=== PATIENT | male | born 1970 | race African-American/Black ===

== ENCOUNTER 2016-09-11 23:04 | Emergency (ER) | payer SELFPAY ==
[~2016-09-11] VITALS: Ht 188 cm; Wt 86.0 kg
[~2016-09-11 23:04] MED LIST: ADDE30XR PO; BACT800T5 PO; IBUP400T20 PO; LEVA500T PO; LISI-360 PO; PERC5TAB12 PO; RANI150 PO; REME30TA PO; XANA1TAB6 PO
[2016-09-11 23:07] VITALS: BP 117/64; PULSE 113; TEMP 99.5
[2016-09-11] MEDS ORDERED: GABA300C5 PO (23:25)
[2016-09-11] MEDS ORDERED: LISI10TA3 PO (23:25)
[2016-09-11] MEDS ORDERED: XANA2TAB2 PO (23:25)
[2016-09-11] MEDS ORDERED: REME30TA PO (23:25)
--- NOTE | 2016-09-11 23:46 | PD ---
HPI Chief Complaint: Chest Pain Time Seen by Provider: 23:22 Travel History International Travel<30 days: No Contact w/Intl Traveler<30days: No Traveled to known affect area: No History of Present Illness HPI 46-year-old male complains of chest pain. Patient states that the pain started this evening when he was at a local store. Patient states that the pain is sharp pain started in the left chest with radiation to left arm. Patient states the pain is worse with deep inspiration. Patient states that he has shortness of breath with the pain. Patient denies any coughing congestion fever chills. Patient denies any injury to the chest wall. Patient denies any history of CAD. Patient states that he had chest pain in the past and had a normal stress test a year ago. Patient states that he had history IV drug abuse in the past but not recently. EMS was called. Patient was given nitroglycerin sublingually 3 and aspirin 162 mg by mouth. Patient states that he has persistent pain despite the medication. On a scale of 1-10 the pain is an 8. Patient has history of anxiety depression, hepatitis C, hypertension. Patient denies history of diabetes or dyslipidemia. Patient is a smoker. Patient denies any alcohol or illicit drug abuse recently. PFSH Past Medical History Arthritis: No Bipolar Disorder: Yes Anxiety: Yes (panic attacks) Depression: Yes Heart Rhythm Problems: No Cardiac Catheterization: No Cardiovascular Problems: Yes High Cholesterol: Yes Chest Pain: No Congestive Heart Failure: No Cerebrovascular Accident: No Diabetes: Yes Diminished Hearing: No Deep Vein Thrombosis: Yes (LEFT ARM) Endocrine: No Genitourinary: No Headaches: Yes Hepatitis: Yes (C) Hypertension: Yes Immune Disorder: No Musculoskeletal: Yes Neurologic: Yes Psychiatric: Yes Reproductive: No Respiratory: No Migraines: Yes Seizures: No Tetanus Vaccination: < 5 Years Past Surgical History Coronary Artery Bypass Graft: No Tonsillectomy: Yes Other Surgery: No Social History Alcohol Use: No (DENIES) Tobacco Use: Yes (1/2 PPD) Substance Use: No Allergies-Medications (Allergen,Severity, Reaction): Coded Allergies: No Known Allergies (Verified , 08/02/15) Reported Meds & Prescriptions Reported Meds & Active Scripts Active Reported Remeron (Mirtazapine) 30 Mg Tab 30 Mg PO HS Gabapentin 300 Mg Cap 300 Mg PO TID Lisinopril 10 Mg Tab 10 Mg PO BID Xanax (Alprazolam) 2 Mg Tab 2 Mg PO QID PRN Review of Systems General / Constitutional: No: Fever Eyes: No: Visual changes HENT: No: Headaches Cardiovascular: Positive: Chest Pain or Discomfort Respiratory: Positive: Shortness of Breath Gastrointestinal: No: Abdominal Pain Genitourinary: No: Dysuria Musculoskeletal: No: Pain Skin: No Rash Neurologic: No: Weakness Psychiatric: No: Depression Endocrine: No: Polydipsia Hematologic/Lymphatic: No: Easy Bruising Physical Exam Narrative GENERAL: Well-nourished, well-developed patient. SKIN: Warm and dry. HEAD: Normocephalic. EYES: No scleral icterus. No injection or drainage. NECK: Supple, trachea midline. No JVD or lymphadenopathy. CARDIOVASCULAR: Regular rate and rhythm without murmurs, gallops, or rubs. RESPIRATORY: Breath sounds equal bilaterally. No accessory muscle use. GASTROINTESTINAL: Abdomen soft, non-tender, nondistended. MUSCULOSKELETAL: No cyanosis, or edema. BACK: Nontender without obvious deformity. No CVA tenderness. Neurologic exam normal. Data Data Last Documented VS Vital Signs Date Time Temp Pulse Resp B/P Pulse Ox O2 Delivery O2 Flow Rate FiO2 09/12/16 00:08 98 18 123/74 99 Room Air 09/11/16 23:07 99.5 Orders Complete Blood Count With Diff (09/11/16 23:39) Comprehensive Metabolic Panel (09/11/16 23:39) Creatine Kinase (Cpk) (09/11/16 23:39) Troponin I (09/11/16 23:39) Prothrombin Time / Inr (Pt) (09/11/16 23:39) Act Partial Throm Time (Ptt) (09/11/16 23:39) Chest, Single Ap (09/11/16 23:39) Iv Access Insert/Monitor (09/11/16 23:39) Ecg Monitoring (09/11/16 23:39) Oximetry (09/11/16 23:39) Labs Laboratory Tests Test 09/11/16 23:55 White Blood Count 15.6 TH/MM3 Red Blood Count 4.80 MIL/MM3 Hemoglobin 14.2 GM/DL Hematocrit 42.0 % Mean Corpuscular Volume 87.5 FL Mean Corpuscular Hemoglobin 29.5 PG Mean Corpuscular Hemoglobin 33.7 % Concent Red Cell Distribution Width 12.6 % Platelet Count 382 TH/MM3 Mean Platelet Volume 7.2 FL Neutrophils (%) (Auto) 73.0 % Lymphocytes (%) (Auto) 20.1 % Monocytes (%) (Auto) 5.7 % Eosinophils (%) (Auto) 0.8 % Basophils (%) (Auto) 0.4 % Neutrophils # (Auto) 11.4 TH/MM3 Lymphocytes # (Auto) 3.1 TH/MM3 Monocytes # (Auto) 0.9 TH/MM3 Eosinophils # (Auto) 0.1 TH/MM3 Basophils # (Auto) 0.1 TH/MM3 CBC Comment DIFF FINAL Differential Comment Prothrombin Time 11.4 SEC Prothromb Time International 1.0 RATIO Ratio Activated Partial 29.4 SEC Thromboplast Time Sodium Level 140 MEQ/L Potassium Level 3.7 MEQ/L Chloride Level 105 MEQ/L Carbon Dioxide Level 25.3 MEQ/L Anion Gap 10 MEQ/L Blood Urea Nitrogen 6 MG/DL Creatinine 0.86 MG/DL Estimat Glomerular Filtration 117 ML/MIN Rate Random Glucose 99 MG/DL Calcium Level 8.5 MG/DL Total Bilirubin 0.3 MG/DL Aspartate Amino Transf 7 U/L (AST/SGOT) Alanine Aminotransferase 17 U/L (ALT/SGPT) Alkaline Phosphatase 65 U/L Total Creatine Kinase 63 U/L Troponin I LESS THAN 0.02 NG/ML Total Protein 8.3 GM/DL Albumin 3.7 GM/DL [facility] Medical Decision Making Medical Screen Exam Complete: Yes Emergency Medical Condition: Yes Interpretation(s) 23:46 PM. EKG shows sinus rhythm nonspecific ST-T wave change. 1:02 AM. Chest x-ray shows no acute consolidation. CBC WBC 15.6. 73 neutrophil. CMP within normal limit. Cardiac enzymes are normal. Differential Diagnosis Differential diagnosis including musculoskeletal, pleurisy, angina, MN, PE, pneumothorax. Narrative Course 46-year-old male with chest pain. The chest pains worse with deep inspiration. Diagnosis Primary Impression: Chest pain, atypical Additional Instructions: Tylenol or Advil for pain. Follow-up with personal physician and ux interaction designer. Return if increase of chest pain or shortness of breath. Med/Other Pt SpecificInfo: No Change to Meds Disposition: 01 DISCHARGE HOME Condition: Stable Oskar Regan MD Sep 11, 2016 23:46
--- NOTE | 2016-09-12 00:04 | RADRPT ---
EXAM DATE/TIME: 09/11/2016 23:49 [facility] COMPARISON: No previous studies available for comparison. INDICATIONS : Pt having chest pain for couple hours. MEDICAL HISTORY : Hypertension. Hepatitis C. SURGICAL HISTORY : Tonsillectomy. ENCOUNTER: Initial ACUITY: 1 day PAIN SCORE: 7/10 LOCATION: Bilateral chest FINDINGS: A single view of the chest demonstrates the lungs to be symmetrically aerated without evidence of mas s, infiltrate or effusion. The cardiomediastinal contours are unremarkable. Osseous structures are intact. CONCLUSION: No evidence of acute cardiopulmonary disease. Horacio Terrazas MD on September 12, 2016 at 0:02 Board Certified Radiologist. This report was verified electronically.
[2016-09-12 00:06] LABS: AUTOMATED NEUTROPHIL # 11.4 TH/MM3 (1.8-7.7); BASOPHIL # 0.1 TH/MM3 (0-0.2); BASOPHIL % 0.4 % (0.0-2.0); EOSINOPHIL # 0.1 TH/MM3 (0-0.4); EOSINOPHIL % 0.8 % (0.0-4.0); HEMO FLAGS DIFF FINAL; LYMPH % 20.1 % (9.0-44.0); LYMPHOCYTE # 3.1 TH/MM3 (1.0-4.8); MEAN CELL VOLUME 87.5 FL (80.0-100.0); MEAN CORPUSCULAR HEMOGLOBIN 29.5 PG (27.0-34.0); MEAN CORPUSCULAR HGB CONC 33.7 % (32.0-36.0); MONO % 5.7 % (0.0-8.0); PLATELET COUNT 382 TH/MM3 (150-450); RED CELL DISTRIBUTION WIDTH 12.6 % (11.6-17.2); WHITE BLOOD COUNT 15.6 TH/MM3 (4.0-11.0)
[2016-09-12 00:08] VITALS: BP 123/74; PULSE 98; RESP 18; O2SAT 99
[2016-09-12 00:14] LABS: APTT (PATIENT) 29.4 SEC (24.3-30.1); PROTHROMBIN TIME - PATIENT 11.4 SEC (9.8-11.6)
[2016-09-12 00:27] LABS: ALT (GPT) 17 U/L (12-78); ANION GAP 10 MEQ/L (5-15); AST (GOT) 7 U/L (15-37); BICARBONATE 25.3 MEQ/L (21.0-32.0); BLOOD UREA NITROGEN 6 MG/DL (7-18); CHLORIDE 105 MEQ/L (98-107); GLOMERULAR FILTRATION RATE 117 ML/MIN (>89); POTASSIUM 3.7 MEQ/L (3.5-5.1); SODIUM (NA) 140 MEQ/L (136-145)
[2016-09-12 00:52] LABS: ALKALINE PHOSPHATASE 65 U/L (45-117); CREATINE KINASE 63 U/L (39-308); TOTAL BILIRUBIN ADULT 0.3 MG/DL (0.2-1.0)
--- NOTE | 2016-09-12 08:32 | EKG ---
Date Performed: 09/11/2016 Time Performed: 23:21:36 PTAGE: 46 years EKG: Sinus rhythm LEFT ATRIAL ENLARGEMENT ABNORMAL ECG PREVIOUS TRACING : 08/02/2015 14.56 Compared to previous tracing, left atrial abnormality now p resent. DOCTOR: Tan Wells Interpretating Date/Time 09/12/2016 08:30:01
== END 2016-09-12 02:52 | disposition home or self-care (01) ==
LOC: NEPC 23:04
DX: R07.89 Other chest pain (principal); R06.02 Shortness of breath; R94.31 Abnormal electrocardiogram [ECG] [EKG]; I10 Essential (primary) hypertension; E78.00 Pure hypercholesterolemia, unspecified; F17.200 Nicotine dependence, unspecified, uncomplicated; Z86.59 Personal history of other mental and behavioral disorders; Z86.19 Personal history of other infectious and parasitic diseases; Z86.79 Personal history of other diseases of the circulatory system; Z86.718 Personal history of other venous thrombosis and embolism; Z87.39 Personal history of other diseases of the musculoskeletal system and connective tissue; Z86.69 Personal history of other diseases of the nervous system and sense organs
CPT/HCPCS: 71010; 80053; 82550; 84484; 85025; 85610; 85730; 93005; 99285

== ENCOUNTER 2016-09-18 10:59 | Emergency (ER) | payer OTHER ==
[~2016-09-18] VITALS: Ht 188 cm; Wt 78.0 kg
[~2016-09-18 10:59] MED LIST changes: -ADDE30XR PO; -BACT800T5 PO; +GABA300C5 PO; -IBUP400T20 PO; -LEVA500T PO; -LISI-360 PO; +LISI10TA3 PO; -PERC5TAB12 PO; -RANI150 PO; -XANA1TAB6 PO; +XANA2TAB2 PO
[2016-09-18 11:02] VITALS: BP 151/97; PULSE 111; RESP 17; TEMP 98.1; O2SAT 96
[2016-09-18] MEDS ORDERED: ADDE30TA PO (11:16)
[2016-09-18 11:59] VITALS: O2SAT 97
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
--- NOTE | 2016-09-18 12:42 | RADRPT ---
EXAM DATE/TIME: 09/18/2016 12:07 [facility] COMPARISON: CHEST SINGLE AP, September 11, 2016, 23:49. INDICATIONS : Shortness of breath. MEDICAL HISTORY : Smoker. SURGICAL HISTORY : None. ENCOUNTER: Initial ACUITY: 2 days PAIN SCORE: 0/10 LOCATION: Bilateral chest FINDINGS: A single view of the chest demonstrates the lungs to be symmetrically aerated without evidence of mas s, infiltrate or effusion. The cardiomediastinal contours are unremarkable. Osseous structures are intact. CONCLUSION: No acute disease. Venkata Malik MD on September 18, 2016 at 12:40 Board Certified Radiologist. This report was verified electronically.
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
[2016-09-18 12:46] LABS: AUTOMATED NEUTROPHIL # 9.3 TH/MM3 (1.8-7.7); BASOPHIL # 0.1 TH/MM3 (0-0.2); BASOPHIL % 0.6 % (0.0-2.0); EOSINOPHIL # 0.2 TH/MM3 (0-0.4); EOSINOPHIL % 1.4 % (0.0-4.0); HEMATOCRIT 39.4 % (39.0-51.0); HEMO FLAGS DIFF FINAL; LYMPH % 24.4 % (9.0-44.0); LYMPHOCYTE # 3.4 TH/MM3 (1.0-4.8); MEAN CELL VOLUME 86.6 FL (80.0-100.0); MEAN CORPUSCULAR HEMOGLOBIN 30.9 PG (27.0-34.0); MEAN CORPUSCULAR HGB CONC 35.6 % (32.0-36.0); NEUT % 66.6 % (16.0-70.0); PLATELET COUNT 427 TH/MM3 (150-450); RED BLOOD COUNT 4.55 MIL/MM3 (4.50-5.90); RED CELL DISTRIBUTION WIDTH 12.9 % (11.6-17.2)
[2016-09-18 12:57] LABS: APTT (PATIENT) 25.5 SEC (24.3-30.1); PROTHROMBIN TIME - PATIENT 11.4 SEC (9.8-11.6)
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
[2016-09-18 13:19] LABS: ALKALINE PHOSPHATASE 70 U/L (45-117); ALT (GPT) 15 U/L (12-78); ANION GAP 10 MEQ/L (5-15); BICARBONATE 25.2 MEQ/L (21.0-32.0); BLOOD UREA NITROGEN 7 MG/DL (7-18); CHLORIDE 102 MEQ/L (98-107); GLOMERULAR FILTRATION RATE 127 ML/MIN (>89); SODIUM (NA) 137 MEQ/L (136-145); TOTAL BILIRUBIN ADULT 0.6 MG/DL (0.2-1.0)
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
[2016-09-18 13:21] LABS: AST (GOT) 16 U/L (15-37); POTASSIUM 4.6 MEQ/L (3.5-5.1)
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
[2016-09-18 13:42] LABS: BACTERIA, URINE OCC /hpf; BLOOD, URINE TRACE (NEG); COMMENT (UR) CULTURE INDICATED; CULTURE IF INDICATED CULTURE INDICATED; GLUCOSE,URINE NEG (NEG); KETONE, URINE TRACE mg/dL (NEG); MUCUS URINE MANY /lpf (OCC); NITRITE,URINE NEG (NEG); PH, URINE 5.5 (5.0-8.5); SQUAMOUS EPITHELIAL CELL URINE <1 /hpf (0-5); URINE COLOR YELLOW (YELLW/STRAW)
[2016-09-18] MEDS ORDERED: MOBI15TA PO (13:56)
[2016-09-18] MEDS ORDERED: TYLETAB34 PO (13:56)
[2016-09-18] MEDS ORDERED: DOXY100T PO (13:59)
[2016-09-18] MEDS ORDERED: KETOROLAC TROMETHAMINE 30 MG/ML (IVP) VIAL IV PUSH ONE (14:00)
== END 2016-09-18 14:41 | disposition home or self-care (01) ==
LOC: NEPA 10:59
DX: S82.65XA Nondisplaced fracture of lateral malleolus of left fibula, initial encounter for closed fracture (principal); S09.90XA Unspecified injury of head, initial encounter; T14.8 Other injury of unspecified body region; N30.00 Acute cystitis without hematuria; I10 Essential (primary) hypertension; R51 Headache; E78.00 Pure hypercholesterolemia, unspecified; E11.9 Type 2 diabetes mellitus without complications; F17.200 Nicotine dependence, unspecified, uncomplicated; Z86.79 Personal history of other diseases of the circulatory system; Z86.19 Personal history of other infectious and parasitic diseases; Z87.39 Personal history of other diseases of the musculoskeletal system and connective tissue; Z86.69 Personal history of other diseases of the nervous system and sense organs; V09.9XXA Pedestrian injured in unspecified transport accident, initial encounter
CPT/HCPCS: 29515; 70450; 71010; 72125; 72131; 72170; 73080; 73552; 73590; 80053; 81001; 85025; 85610; 85730; 87086; 96374; 99284; E0113; J1885